=== PATIENT | female | born 1980 | race African-American/Black ===

== ENCOUNTER 2018-06-15 09:36 | Emergency (ER) | payer OTHER ==
[~2018-06-15] VITALS: Ht 167.6 cm; Wt 113.4 kg
[~2018-06-15 09:36] MED LIST: BACTRIM DS TAB1 EACH PO; CIPROFLOXACIN500 M1 PO; CYCLOBENZAPRINE5 MG PO; FLONASE 0.05%50 MCG NASAL; IBUPROFEN 400400 M2 PO; IBUPROFEN 600600 M1 PO; IBUPROFEN 800800 M1 PO; KEFLEX500 MG PO; TRAMADOL 50 MG50 MG PO; TYLENOL325 MG PO
[2018-06-15] MEDS ORDERED: FLONASE 0.05%50 MCG NASAL (10:11)
[2018-06-15] MEDS ORDERED: HYDROCHLOROTHIA25 M2 PO (10:11)
[2018-06-15] MEDS ORDERED: CORICIDIN HBP1 EAC5 PO (10:11)
[2018-06-15 10:30] VITALS: BP 158/107
== END 2018-06-15 10:39 | disposition home or self-care (01) ==
LOC: ER 09:36
DX: I10 Essential (primary) hypertension (principal); J06.9 Acute upper respiratory infection, unspecified

== ENCOUNTER 2019-02-26 10:15 | Emergency (ER) | payer OTHER ==
[~2019-02-26] VITALS: Ht 165.1 cm; Wt 113.4 kg
[~2019-02-26 10:15] MED LIST changes: +CORICIDIN HBP1 EAC5 PO; +HYDROCHLOROTHIA25 M2 PO
[2019-02-26] MEDS ORDERED: ULTRAM 50MG TAB50 MG PO (10:36)
[2019-02-26] MEDS ORDERED: CYCLOBENZAPRINE5 MG PO (10:36)
== END 2019-02-26 11:17 | disposition home or self-care (01) ==
LOC: ER 10:15
DX: M62.830 Muscle spasm of back (principal); I10 Essential (primary) hypertension; Z98.890 Other specified postprocedural states

== ENCOUNTER 2020-01-28 11:36 | Emergency (ER) | payer OTHER ==
[~2020-01-28] VITALS: Ht 162.6 cm; Wt 117.9 kg
[~2020-01-28 11:36] MED LIST changes: +ULTRAM 50MG TAB50 MG PO
[2020-01-28 11:39] VITALS: BP 148/100
[2020-01-28] MEDS ORDERED: PREDNISONE 20 M20 MG PO (12:06)
[2020-01-28] MEDS ORDERED: AMOXICILLIN 50500 MG PO (12:06)
[2020-01-28] MEDS ORDERED: NEOMYCIN-POLY-7.5 ML OPHTHALMIC (12:16)
== END 2020-01-28 12:15 | disposition home or self-care (01) ==
LOC: ER 11:36
DX: J32.0 Chronic maxillary sinusitis (principal); H10.9 Unspecified conjunctivitis; I10 Essential (primary) hypertension

== ENCOUNTER 2021-02-14 12:05 | Emergency (ER) | payer OTHER ==
[~2021-02-14] VITALS: Ht 170.2 cm; Wt 122.5 kg
[~2021-02-14 12:05] MED LIST changes: +AMOXICILLIN 50500 MG PO; +NEOMYCIN-POLY-7.5 ML OPHTHALMIC; +PREDNISONE 20 M20 MG PO
[2021-02-14 12:09] VITALS: BP 156/115
[2021-02-14] MEDS ORDERED: AMOXICILLIN500 M1 PO (12:39)
== END 2021-02-14 12:45 | disposition home or self-care (01) ==
LOC: ER 12:05
DX: J06.9 Acute upper respiratory infection, unspecified (principal); H66.92 Otitis media, unspecified, left ear; I10 Essential (primary) hypertension; Z88.1 Allergy status to other antibiotic agents; Z88.8 Allergy status to other drugs, medicaments and biological substances